=== PATIENT | female | born 2000 | race Caucasian/White ===

== ENCOUNTER 2020-08-19 13:49 | Emergency (ER) | payer BC ==
--- NOTE | 2020-08-19 14:39 | EDM.PDOC ---
ED HPI GENERAL MEDICAL PROBLEM - General Chief Complaint: IT SALES CONSULTANT Problem Stated Complaint: GENITAL BLEEDING Time Seen by Provider: 08/19/20 13:50 Source of Information: Reports: Patient History Limitations: Reports: No Limitations - History of Present Illness INITIAL COMMENTS - FREE TEXT/NARRATIVE: History of present illness: Patient is a 20 year old female who presents to the ED with complaints of vaginal bleeding. Reports her last menstrual period was August 03, 2020 - although she usually has irregular periods, its typically 1-2 weeks late, not early bleeding. She states she has gone through a pad in the last 1 hour. gone through a pad in the last hour. She previously had been on control, but hasn't in the past several months due to not having a PCP. Denies any concern for , but is sexually active. She has history of genital herpes, no current outbreaks. Denies any injury or pelvic trauma. Patient denies any fever, chills, headache, change in vision, syncope or near syncope. Denies any chest pain, back pain, shortness of breath or cough. Denies any nausea, vomiting, diarrhea, constipation or dysuria. Patient has been eating and drinking appropr iately Review of systems: As per history of present illness and below otherwise all systems reviewed and negative. Past medical history: As per history of present illness and as reviewed below otherwise noncontributory. Surgical history: As per history of present illness and as reviewed below otherwise noncontributory. Social history: No reported history of drug or alcohol abuse. Family history: As per history of present illness and as reviewed below otherwise noncontributory. Physical exam: General: Well-developed and well-nourished 4-year-old female. Alert and appropriate for age. Nontoxic-appearing and in no acute distress. Accompanied by mom who is attentive to child's needs and at bedside. HEENT: Atraumatic, normocephalic, pupils reactive, negative for conjunctival pallor or scleral icterus, mucous membranes moist, throat clear, neck supple, nontender, trachea midline. TMs normal bilaterally, no cervical adenopathy or nuchal rigidity. Lungs: Clear to auscultation, breath sounds equal bilaterally, chest nontender. No work of breathing, no accessory muscles use. Heart: S1S2, regular rate and rhythm, no overt murmurs Abdomen: Soft, nondistended, no abdominal/pelvic tenderness. Negative for masses or hepatosplenomegaly. Normal abdominal bowel sounds. No flank tenderness. /Rectal: This was done with consent and a nuclear technician at the bedside. Patient's external exam is within normal limits. She does have mild bleeding from the cervical os, no cervical motion tenderness. No discharge is noted. Patient tolerated well. Samples sent to lab with patient consent. Hematologic: No petechiae or purpra. Mucosa appropriate color and normal nail bed color and refill. Skin: Normal turgor, no overt rash or lesions Extremities: Atraumatic, full range of motion without defects or deficits. Neurovascular unremarkable. Neuro: Awake, alert, and age appropriate. Cranial nerves II through XII unremarkable. Cerebellum unremarkable. Motor and sensory unremarkable throughout. Exam nonfocal. Notes: This patient was seen and evaluated during the 2019 SARS-CoV-2 novel coronavirus pandemic period. Community viral transmission is ongoing at time of this encounter and the emergency department is operating under pandemic response procedures Lab work is unremarkable with the exception of bacterial vaginosis. I have spoken with the patient/caregiver and discussed today's findings, in addition to providing specific details for plan of care. Reassessment at the time of disposition demonstrates that the patient is in no acute distress. The patient is stable for discharge, counseling was provided and we discussed in great detail signs and symptoms that would prompt them to return to the Emergency Department. Medication, follow up and supportive care measures were reviewed and discussed. Voices understanding and is agreeable to plan of care. Denies any further questions or concerns at this time. Diagnostics: CBC, CMP, UA, CT abdomen and pelvis Therapeutics: None Prescription: Flagyl Impression: Irregular menses Bacterial Vaginosis Plan: 1. Your lab work is unremarkable with the exception of a bacterial vaginosis, which will require antibiotics for 7 days. No sexual intercourse during treatment (decreases effectiveness) and avoid alcohol (can cause GI symptoms). 2. You can alternate Tylenol and/or ibuprofen as needed for pain or fever renée gement. 3. We always encourage you to follow up with an OBGYN in the next week for re- evaluation and further care/management. I would encourage you set up with an OBGYN especially if you continue to have irregular menstrual/dysfunctional uterine bleeding. 4. If your symptoms should worsen, new symptoms develop or any of the signs and symptoms we discussed should arise please return to the emergency room or call 911 (if needed). - Related Data Allergies Allergy/AdvReac Type Severity Reaction Status Date / Time No Known Allergies Allergy Verified 08/19/20 14:13 Home Meds: Home Meds metroNIDAZOLE [Flagyl] 500 mg PO BID 7 Days #14 tab 08/19/20 [Rx] valACYclovir HCl [Valtrex] 08/19/20 [History] Past Medical History - Past Health History Medical/Surgical History: Denies Medical/Surgical History ED ROS GENERAL - Review of Systems Review Of Systems: Comprehensive ROS is negative, except as noted in HPI. ED EXAM - Physical Exam Exam: See Below (See dictation) Course - Vital Signs Last Recorded V/S: Last Vital Signs Temp 98.0 F 08/19/20 14:01 Pulse 67 08/19/20 14:01 Resp 18 08/19/20 14:01 BP 117/64 08/19/20 14:01 Pulse Ox 98 08/19/20 14:01 - Orders/Labs/Meds Orders: Active Orders 24 hr Category Date Time Status CHLAMYDIA AND GONORRHEA BY TMA Stat Lab 08/19/20 14:15 Received Labs: Laboratory Tests 08/19/20 08/19/20 08/19/20 Range/Units 14:08 14:08 14:15 WBC (4.0-11.0) K/uL RBC (4.30-5.90) M/uL Hgb (12.0-16.0) g/dL Hct (36.0-46.0) % MCV (80.0-98.0) fL MCH (27.0-32.0) pg MCHC (31.0-37.0) g/dL RDW Std Deviation (28.0-62.0) fl RDW Coeff of Leticia (11.0-15.0) % Plt Count (150-400) K/uL MPV (7.40-12.00) fL Neut % (Auto) (48.0-80.0) % Lymph % (Auto) (16.0-40.0) % [place] % (Auto) (0.0-15.0) % Eos % (Auto) (0.0-7.0) % Baso % (Auto) (0.0-1.5) % Neut # (Auto) (1.4-5.7) K/uL Lymph # (Auto) (0.6-2.4) K/uL [place] # (Auto) (0.0-0.8) K/uL Eos # (Auto) (0.0-0.7) K/uL Baso # (Auto) (0.0-0.1) K/uL Nucleated RBC % /100WBC Nucleated RBCs # K/uL Sodium (136-145) mmol/L Potassium (3.5-5.1) mmol/L Chloride (98-107) mmol/L Carbon Dioxide (21.0-32.0) mmol/L BUN (7.0-18.0) mg/dL Creatinine (0.6-1.0) mg/dL Est Cr Clr Drug Dosing mL/min Estimated GFR (MDRD) ml/min Glucose (74-106) mg/dL Calcium (8.5-10.1) mg/dL Total Bilirubin (0.2-1.0) mg/dL AST (15-37) IU/L ALT (14-63) IU/L Alkaline Phosphatase (46-116) U/L Total Protein (6.4-8.2) g/dL Albumin (3.4-5.0) g/dL Globulin (2.6-4.0) g/dL Albumin/Globulin Ratio (0.9-1.6) Urine Color DARK YELLOW Urine Appearance SLT CLOUDY Urine pH 6.5 (5.0-8.0) Ur Specific [place] 1.020 (1.001-1.035) Urine Protein 30 H (NEGATIVE) mg/dL Urine Glucose (UA) NEGATIVE (NEGATIVE) mg/dL Urine Ketones 15 H (NEGATIVE) mg/dL Urine Occult Blood LARGE H (NEGATIVE) Urine Nitrite NEGATIVE (NEGATIVE) Urine Bilirubin NEGATIVE (NEGATIVE) Urine Urobilinogen 4.0 H (<2.0) EU/dL Ur Leukocyte Esterase NEGATIVE (NEGATIVE) Urine RBC 2-4 (0-2/HPF) Urine WBC 2-5 (0-5/HPF) Ur Epithelial Cells FEW (NONE-FEW) Amorphous Sediment FEW (NEGATIVE) Urine Bacteria FEW (NEGATIVE) Urine Mucus FEW (NONE-MOD) Urine HCG, Qual NEGATIVE (NEGATIVE) Harmony species DNA NEGATIVE (NEGATIVE) Gardnerella DNA Probe POSITIVE H (NEGATIVE) Trichomonas DNA Probe NEGATIVE (NEGATIVE) 08/19/20 08/19/20 Range/Units 15:14 15:14 WBC 6.55 (4.0-11.0) K/uL RBC 4.24 L (4.30-5.90) M/uL Hgb 13.5 (12.0-16.0) g/dL Hct 39.6 (36.0-46.0) % MCV 93.4 (80.0-98.0) fL MCH 31.8 (27.0-32.0) pg MCHC 34.1 (31.0-37.0) g/dL RDW Std Deviation 41.6 (28.0-62.0) fl RDW Coeff of Leticia 12 (11.0-15.0) % Plt Count 292 (150-400) K/uL MPV 11.10 (7.40-12.00) fL Neut % (Auto) 69.5 (48.0-80.0) % Lymph % (Auto) 24.3 (16.0-40.0) % [place] % (Auto) 5.5 (0.0-15.0) % Eos % (Auto) 0.2 (0.0-7.0) % Baso % (Auto) 0.5 (0.0-1.5) % Neut # (Auto) 4.6 (1.4-5.7) K/uL Lymph # (Auto) 1.6 (0.6-2.4) K/uL [place] # (Auto) 0.4 (0.0-0.8) K/uL Eos # (Auto) 0.0 (0.0-0.7) K/uL Baso # (Auto) 0.0 (0.0-0.1) K/uL Nucleated RBC % 0.0 /100WBC Nucleated RBCs # 0 K/uL Sodium 142 (136-145) mmol/L Potassium 4.1 (3.5-5.1) mmol/L Chloride 103 (98-107) mmol/L Carbon Dioxide 27.6 (21.0-32.0) mmol/L BUN 9 (7.0-18.0) mg/dL Creatinine 0.7 (0.6-1.0) mg/dL Est Cr Clr Drug Dosing 104.28 mL/min Estimated GFR (MDRD) > 60.0 ml/min Glucose 93 (74-106) mg/dL Calcium 9.0 (8.5-10.1) mg/dL Total Bilirubin 0.6 (0.2-1.0) mg/dL AST 13 L (15-37) IU/L ALT 19 (14-63) IU/L Alkaline Phosphatase 39 L (46-116) U/L Total Protein 7.4 (6.4-8.2) g/dL Albumin 4.1 (3.4-5.0) g/dL Globulin 3.3 (2.6-4.0) g/dL Albumin/Globulin Ratio 1.2 (0.9-1.6) Urine Color Urine Appearance Urine pH (5.0-8.0) Ur Specific [place] (1.001-1.035) Urine Protein (NEGATIVE) mg/dL Urine Glucose (UA) (NEGATIVE) mg/dL Urine Ketones (NEGATIVE) mg/dL Urine Occult Blood (NEGATIVE) Urine Nitrite (NEGATIVE) Urine Bilirubin (NEGATIVE) Urine Urobilinogen (<2.0) EU/dL Ur Leukocyte Esterase (NEGATIVE) Urine RBC (0-2/HPF) Urine WBC (0-5/HPF) Ur Epithelial Cells (NONE-FEW) Amorphous Sediment (NEGATIVE) Urine Bacteria (NEGATIVE) Urine Mucus (NONE-MOD) Urine HCG, Qual (NEGATIVE) Harmony species DNA (NEGATIVE) Gardnerella DNA Probe (NEGATIVE) Trichomonas DNA Probe (NEGATIVE) Departure - Departure Time of Disposition: 16:11 Disposition: Home, Self-Care 01 Clinical Impression: Bacterial vaginosis, Irregular menses - Discharge Information Prescriptions: metroNIDAZOLE [Flagyl] 500 mg PO BID 7 Days #14 tab Instructions: Bacterial Vaginosis, [id number] Referrals: PCP,None [Primary Care Provider] - Forms: ED Department Discharge Additional Instructions: The following information is given to patients seen in the emergency department who are being discharged to home. This information is to outline your options for follow-up care. We provide all patients seen in our emergency department with a follow-up referral. The need for follow-up, as well as the timing and circumstances, are variable depending upon the specifics of your emergency department visit. If you don't have a primary care physician on staff, we will provide you with a referral. We always advise you to contact your personal physician following an emergency department visit to inform them of the circumstance of the visit and for follow-up with them and/or the need for any referrals to a consulting specialist. The emergency department will also refer you to a specialist when appropriate. This referral assures that you have the opportunity for follow-up care with a specialist. All of these measure are taken in an effort to provide you with optimal care, which includes your follow-up. Under all circumstances we always encourage you to contact your private physician who remains a resource for coordinating your care. When calling for follow-up care, please make the office aware that this follow-up is from your recent emergency room visit. If for any reason you are refused follow-up, please contact the [facility] Emergency Department at and asked to speak to the emergency department charge nurse. [facility] [address] [place], [place] [id number] [place] [address] Thank you for choosing the [facility] emergency department in [place] for your medical needs today. It was a pleasure caring for you. Today you were seen in the emergency department for vaginal bleeding. 1. Your lab work is unremarkable with the exception of a bacterial vaginosis, which will require antibiotics for 7 days. No sexual intercourse during treatment (decreases effectiveness) and avoid alcohol (can cause GI symptoms). 2. You can alternate Tylenol and/or ibuprofen as needed for pain or fever management. 3. We always encourage you to follow up with an OBGYN in the next week for re-evaluation and further care/management. I would encourage you set up with an OBGYN especially if you continue to have irregular menstrual/dysfunctional uterine bleeding. 4. If your symptoms should worsen, new symptoms develop or any of the signs and symptoms we discussed should arise please return to the emergency room or call 911 (if needed). Sepsis Event Note (ED) - Evaluation Sepsis Screening Result: No Definite Risk - Focused Exam Vital Signs: Vital Signs Temp Pulse Resp BP Pulse Ox 08/19/20 14:01 98.0 F 67 18 117/64 98 - My Orders Last 24 Hours: My Active Orders 08/19/20 14:15 CHLAMYDIA AND GONORRHEA BY TMA Stat - Assessment/Plan Last 24 Hours: My Active Orders 08/19/20 14:15 CHLAMYDIA AND GONORRHEA BY TMA Stat
[2020-08-19 16:05] LABS: BLOOD UREA NITROGEN,BUN 9 mg/dL (7.0-18.0); CARBON DIOXIDE,CO2 27.6 mmol/L (21.0-32.0); CHLORIDE,CL 103 mmol/L (98-107); GLUCOSE RANDOM 93 mg/dL (74-106); POTASSIUM,K 4.1 mmol/L (3.5-5.1); SODIUM,NA 142 mmol/L (136-145)
[2020-08-23 12:07] LABS: C.TRACHOMATIS BY TMA Negative (Negative); N.GONORRHOEAE BY TMA Negative (Negative)
== END 2020-08-19 16:25 | disposition home or self-care (01) ==
LOC: MW.ED 13:49
DX: N92.6 Irregular menstruation, unspecified (principal); N76.0 Acute vaginitis; B96.89 Other specified bacterial agents as the cause of diseases classified elsewhere
CPT/HCPCS: 36415; 80053; 81001; 81025; 85025; 87480; 87491; 87510; 87591; 87660; 99283; 99284

== ENCOUNTER 2020-10-23 12:06 | Emergency (ER) | payer BC ==
--- NOTE | 2020-10-23 12:55 | EDM.PDOC ---
ED HPI GENERAL MEDICAL PROBLEM - General Chief Complaint: ENT Problem Stated Complaint: sore throat Time Seen by Provider: 10/23/20 12:47 Source of Information: Reports: Patient History Limitations: Reports: No Limitations - History of Present Illness INITIAL COMMENTS - FREE TEXT/NARRATIVE: Patient is a 20-year-old female who presents today for throat pain. Patient for the past few days she has had a sore and scratchy throat. Patient said her snapshot swallowing pain. Patient she is able to breathe clear well. Patient denies any rashes or any other symptoms. - Related Data Allergies Allergy/AdvReac Type Severity Reaction Status Date / Time No Known Allergies Allergy Verified 08/19/20 14:13 Home Meds: Home Meds metroNIDAZOLE [Flagyl] 500 mg PO BID 7 Days #14 tab 08/19/20 [Rx] valACYclovir HCl [Valtrex] 08/19/20 [History] Past Medical History - Past Health History Medical/Surgical History: Denies Medical/Surgical History - Infectious Disease History Infectious Disease History: Reports: Herpes Social & Family History - Family History Family Medical History: No Pertinent Family History - Caffeine Use Caffeine Use: Reports: None ED ROS ENT - Review of Systems Review Of Systems: See Below Constitutional: Reports: No Symptoms HEENT: Reports: Throat Pain Respiratory: Reports: No Symptoms Endocrine: Reports: No Symptoms GI/Abdominal: Reports: No Symptoms : Reports: No Symptoms Musculoskeletal: Reports: No Symptoms Skin: Reports: No Symptoms Neurological: Reports: No Symptoms Psychiatric: Reports: No Symptoms Hematologic/Lymphatic: Reports: No Symptoms Immunologic: Reports: No Symptoms ED EXAM, ENT - Physical Exam Exam: See Below Exam Limited By: No Limitations General Appearance: Alert, WD/WN Mouth/Throat: Normal Inspection, Normal Gums, Throat Pain. No: Throat Swelling, Tonsillar Exudates Course - Orders/Labs/Meds Labs: Laboratory Tests 10/23/20 10/23/20 Range/Units 13:14 13:25 Urine HCG, Qual NEGATIVE (NEGATIVE) Group A Strep (PCR) NOT DETECTED (NOT DETECT) Meds: Medications Discontinued Medications Generic Name Dose Route Start Last Admin Trade Name Freq PRN Reason Stop Dose Admin Dexamethasone 10 mg 10/23/20 13:41 Dexamethasone 10 Mg/Ml Sdv IM 10/23/20 13:42 ONETIME ONE Ketorolac Tromethamine 60 mg 10/23/20 13:41 Ketorolac 60 Mg/2 Ml Sdv IM 10/23/20 13:42 ONETIME ONE - Re-Assessments/Exams Free Text/Narrative Re-Assessment/Exam: 10/23/20 13:59 Strep test is negative. Will be discharged home with pain control symptomatic treatment. Departure - Departure Time of Disposition: 13:59 Disposition: Home, Self-Care 01 Condition: Good Clinical Impression: Viral pharyngitis - Discharge Information *PRESCRIPTION DRUG MONITORING PROGRAM REVIEWED*: Not Applicable *COPY OF PRESCRIPTION DRUG MONITORING REPORT IN PATIENT KAYLA: Not Applicable Instructions: Pharyngitis, [id number] Referrals: PCP,None [Primary Care Provider] - Forms: ED Department Discharge Additional Instructions: The following information is given to patients seen in the emergency department who are being discharged to home. This information is to outline your options for follow-up care. We provide all patients seen in our emergency department with a follow-up referral. The need for follow-up, as well as the timing and circumstances, are variable depending upon the specifics of your emergency department visit. If you don't have a primary care physician on staff, we will provide you with a referral. We always advise you to contact your personal physician following an emergency department visit to inform them of the circumstance of the visit and for follow-up with them and/or the need for any referrals to a consulting specialist. The emergency department will also refer you to a specialist when appropriate. This referral assures that you have the opportunity for follow-up care with a specialist. All of these measure are taken in an effort to provide you with optimal care, which includes your follow-up. Under all circumstances we always encourage you to contact your private physician who remains a resource for coordinating your care. When calling for follow-up care, please make the office aware that this follow-up is from your recent emergency room visit. If for any reason you are refused follow-up, please contact the [facility] Emergency Department at and asked to speak to the emergency department charge nurse. Please follow up with your primary care physician. If you do not have a primary care physician, see below: [facility] [address] [place] [id number] [place] [address] Please follow-up with your primary care physician. We did a rapid strep that was negative. We will also send a culture. Please continue to take [id number] medication as needed for your throat pain. We gave you some Decadron with steroids about the swelling and pain today. If you have any other concerns please return to the ED. - Assessment/Plan Plan: Patient is a 20-year-old female presents today for throat pain. Patient does not have any tonsillar exudates. Will obtain strep throat and reassess.
[2020-10-23] MEDS ORDERED: Dexamethasone 10 MG/ML SDV IM ONE (13:41)
[2020-10-23] MEDS ORDERED: Ketorolac 60 MG/2 ML SDV IM ONE (13:41)
== END 2020-10-23 14:14 | disposition home or self-care (01) ==
LOC: MW.ED 12:06
DX: J02.9 Acute pharyngitis, unspecified (principal)
CPT/HCPCS: 81025; 87651; 96372; 99283; J1100; 99282

== ENCOUNTER 2020-12-18 16:54 | Emergency (ER) | payer OTHER, BC ==
[2020-12-18] MEDS ORDERED: Ketorolac 60 MG/2 ML SDV IM ONE (17:39)
[2020-12-18] MEDS ORDERED: Ketorolac 30 MG/ML SDV IVPUSH ONE (17:39)
[2020-12-18 17:54] LABS: BLOOD UREA NITROGEN,BUN 16 mg/dL (7.0-18.0); CARBON DIOXIDE,CO2 23.9 mmol/L (21.0-32.0); CHLORIDE,CL 103 mmol/L (98-107); GLUCOSE RANDOM 148 mg/dL (74-106); POTASSIUM,K 4.1 mmol/L (3.5-5.1); SODIUM,NA 139 mmol/L (136-145)
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
[2020-12-18] MEDS ORDERED: Iopamidol 755 MG/ML 500 ML Multipack Bottle IVPUSH ONE (18:51)
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
== END 2020-12-18 19:37 | disposition home or self-care (01) ==
LOC: MW.ED 16:54
DX: S40.012A Contusion of left shoulder, initial encounter (principal); S39.91XA Unspecified injury of abdomen, initial encounter; V59.9XXA Occupant (driver) (passenger) of pick-up truck or van injured in unspecified traffic accident, initial encounter
CPT/HCPCS: 36415; 71045; 74177; 80053; 84703; 85025; 96374; 99284; J1885; Q9967; 72131-26; 99283

== ENCOUNTER 2021-02-23 23:41 | Emergency (ER) | payer OTHER, BC ==
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
--- NOTE | 2021-02-24 00:37 | CR ---
INDICATION: Hydrogen sulfide exposure TECHNIQUE: Chest radiograph 1 view COMPARISON: 12/18/2020 FINDINGS: Mediastinum: The mediastinum is normal in appearance. The heart silhouette is normal in size and morphology. Lung: Both lungs are unremarkable in appearance. No sign of pleural effusion seen. No pneumothorax is identified. Bone and Soft tissue: Unremarkable for age. IMPRESSION: 1. No acute cardiopulmonary disease is seen. Dictated by: Lupillo Brown MD @ 02/24/2021 00:35:55 (Electronically Signed)
[2021-02-24 00:49] LABS: BLOOD UREA NITROGEN,BUN 11 mg/dL (7.0-18.0); CARBON DIOXIDE,CO2 25.8 mmol/L (21.0-32.0); CHLORIDE,CL 102 mmol/L (98-107); GLUCOSE RANDOM 87 mg/dL (74-106); POTASSIUM,K 4.2 mmol/L (3.5-5.1); SODIUM,NA 137 mmol/L (136-145)
== END 2021-02-24 02:30 | disposition home or self-care (01) ==
LOC: MW.ED 23:41
DX: T59.6X1A Toxic effect of hydrogen sulfide, accidental (unintentional), initial encounter (principal)
CPT/HCPCS: 36415; 71045; 71045-26; 80053; 82803; 83605; 84703; 85025; 99284-25

== ENCOUNTER 2021-06-28 04:39 | Emergency (ER) | payer BC, OTHER ==
[2021-06-28] MEDS ORDERED: Ondansetron 4 MG/2 ML SDV IVPUSH STA (04:51)
[2021-06-28] MEDS ORDERED: Ketorolac 30 MG/ML SDV IVPUSH STA (04:51)
[2021-06-28] MEDS ORDERED: Sodium Chloride 0.9% 1,000 ML IV ONE (04:51)
[2021-06-28] MEDS ORDERED: Ketorolac 30 MG/ML SDV ONE (04:58)
[2021-06-28] MEDS ORDERED: Ondansetron 4 MG/2 ML SDV ONE (04:58)
[2021-06-28] MEDS ORDERED: Iopamidol 755 MG/ML 500 ML Multipack Bottle IVPUSH STA (06:09)
[2021-06-28 06:35] LABS: BLOOD UREA NITROGEN,BUN 9 mg/dL (7.0-18.0); CARBON DIOXIDE,CO2 26.7 mmol/L (21.0-32.0); CHLORIDE,CL 100 mmol/L (98-107); GLUCOSE RANDOM 104 mg/dL (74-106); LIPASE 91 U/L (73-393); POTASSIUM,K 3.7 mmol/L (3.5-5.1); SODIUM,NA 137 mmol/L (136-145)
--- NOTE | 2021-06-28 06:48 | EDM.PDOC ---
ED HPI GENERAL MEDICAL PROBLEM - General Chief Complaint: Abdominal Pain Stated Complaint: ABDOMINAL PAIN Time Seen by Provider: 06/28/21 06:42 Source of Information: Reports: Patient History Limitations: Reports: No Limitations - History of Present Illness INITIAL COMMENTS - FREE TEXT/NARRATIVE: 21-year-old female with history of fibroid presents with abdominal pain. Pain started 3 days ago but got worse 2 hours prior to arrival. Pain is localized in the right upper quadrant and radiates into the right upper flank, described as sharp, rated 8/10, constant, no alleviating or exacerbating factors. She took Tylenol with no relief. She admits to chills and nausea and decreased appetite. She denies fever, vomiting, rectal bleeding, hematuria. Diarrhea, chest pain. Her last p.o. intake with 9:30 PM. ROS: A 10-point review of systems, other than pertinent positives and negatives as stated per HPI, is otherwise negative Past medical history: No additional pertinent history Past Surgical history: No additional pertinent history Social history: No additional pertinent history Family history: No additional pertinent history PHYSICAL EXAM General: AOx4, GCS = 15, moderate distress HEENT: dry mucous membrane Neck: supple, no meningismus, no Kernig or Brudzinski Cardiac: S1S2 RRR Respiratory: CTAB, no crackles or rales, no wheezing Abdomen: Soft, RUQ tender to palpation, right CVA tenderness, mild RLQ tenderness, No rebound or guarding, nondistended, no pulsatile mass. Back: nontender Musculoskeletal: NVI distally, no deformity Neuro: No focal deficits Right Lower Abdomen Pain Score (Numeric/FACES): 8 - Related Data Allergies Allergy/AdvReac Type Severity Reaction Status Date / Time No Known Allergies Allergy Verified 06/28/21 06:06 Home Meds: Home Meds . [No Known Home Meds] 02/23/21 [History] Past Medical History - Past Health History Medical/Surgical History: Denies Medical/Surgical History HEENT History: Reports: None Cardiovascular History: Reports: None Respiratory History: Reports: None Gastrointestinal History: Reports: None Genitourinary History: Reports: None ARCHITECTURAL MODELER History: Reports: Other (See Below) Other ARCHITECTURAL MODELER History: right breast fibromanoma Musculoskeletal History: Reports: None Neurological History: Reports: None Psychiatric History: Reports: None Endocrine/Metabolic History: Reports: None Hematologic History: Reports: None Immunologic History: Reports: None Oncologic (Cancer) History: Reports: None Dermatologic History: Reports: None - Infectious Disease History Infectious Disease History: Reports: Herpes - Past Surgical History Head Surgeries/Procedures: Reports: None Social & Family History - Family History Family Medical History: No Pertinent Family History - Caffeine Use Caffeine Use: Reports: None ED ROS GENERAL - Review of Systems Review Of Systems: See Below (see dictation) ED EXAM, GENERAL - Physical Exam Exam: See Below (see dictation) Course - Vital Signs Last Recorded V/S: Last Vital Signs Temp 98.2 F 06/28/21 04:43 Pulse 99 06/28/21 06:23 Resp 15 06/28/21 06:23 BP 111/64 06/28/21 06:23 Pulse Ox 99 06/28/21 06:23 - Orders/Labs/Meds Orders: Active Orders 24 hr Category Date Time Status Abdomen Ltd [US] Stat Exams 06/28/21 05:20 Taken Abdomen Pelvis w Cont [CT] Stat Exams 06/28/21 05:40 Taken CULTURE URINE [MREF] Stat Lab 06/28/21 04:55 Received Labs: Laboratory Tests 06/28/21 06/28/21 06/28/21 Range/Units 04:55 04:55 04:55 WBC 8.56 (4.0-11.0) K/uL RBC 4.37 (4.30-5.90) M/uL Hgb 14.0 (12.0-16.0) g/dL Hct 40.6 (36.0-46.0) % MCV 92.9 (80.0-98.0) fL MCH 32.0 (27.0-32.0) pg MCHC 34.5 (31.0-37.0) g/dL RDW Std Deviation 41.9 (28.0-62.0) fl RDW Coeff of Leticia 12 (11.0-15.0) % Plt Count 279 (150-400) K/uL MPV 11.30 (7.40-12.00) fL Neut % (Auto) 55.6 (48.0-80.0) % Lymph % (Auto) 34.8 (16.0-40.0) % Lyman % (Auto) 7.6 (0.0-15.0) % Eos % (Auto) 1.4 (0.0-7.0) % Baso % (Auto) 0.6 (0.0-1.5) % Neut # (Auto) 4.8 (1.4-5.7) K/uL Lymph # (Auto) 3.0 H (0.6-2.4) K/uL Lyman # (Auto) 0.7 (0.0-0.8) K/uL Eos # (Auto) 0.1 (0.0-0.7) K/uL Baso # (Auto) 0.1 (0.0-0.1) K/uL Nucleated RBC % 0.0 /100WBC Nucleated RBCs # 0 K/uL Sodium 137 (136-145) mmol/L Potassium 3.7 (3.5-5.1) mmol/L Chloride 100 (98-107) mmol/L Carbon Dioxide 26.7 (21.0-32.0) mmol/L BUN 9 (7.0-18.0) mg/dL Creatinine 0.8 (0.6-1.0) mg/dL Est Cr Clr Drug Dosing TNP Estimated GFR (MDRD) > 60.0 ml/min Glucose 104 (74-106) mg/dL Calcium 9.3 (8.5-10.1) mg/dL Total Bilirubin 0.5 (0.2-1.0) mg/dL AST 12 L (15-37) IU/L ALT 16 (14-63) IU/L Alkaline Phosphatase 46 (46-116) U/L Total Protein 7.7 (6.4-8.2) g/dL Albumin 4.1 (3.4-5.0) g/dL Globulin 3.6 (2.6-4.0) g/dL Albumin/Globulin Ratio 1.1 (0.9-1.6) Lipase 91 (73-393) U/L HCG, Qual (NEG) Urine Color YELLOW Urine Appearance CLEAR Urine pH 6.5 (5.0-8.0) Ur Specific [place] <= 1.005 (1.001-1.035) Urine Protein NEGATIVE (NEGATIVE) mg/dL Urine Glucose (UA) NEGATIVE (NEGATIVE) mg/dL Urine Ketones NEGATIVE (NEGATIVE) mg/dL Urine Occult Blood MODERATE H (NEGATIVE) Urine Nitrite NEGATIVE (NEGATIVE) Urine Bilirubin NEGATIVE (NEGATIVE) Urine Urobilinogen 0.2 (<2.0) EU/dL Ur Leukocyte Esterase SMALL H (NEGATIVE) Urine RBC 2-3 (0-2/HPF) Urine WBC 1-3 (0-5/HPF) Ur Epithelial Cells FEW (NONE-FEW) Urine Bacteria FEW (NEGATIVE) 06/28/21 Range/Units 04:55 WBC (4.0-11.0) K/uL RBC (4.30-5.90) M/uL Hgb (12.0-16.0) g/dL Hct (36.0-46.0) % MCV (80.0-98.0) fL MCH (27.0-32.0) pg MCHC (31.0-37.0) g/dL RDW Std Deviation (28.0-62.0) fl RDW Coeff of Leticia (11.0-15.0) % Plt Count (150-400) K/uL MPV (7.40-12.00) fL Neut % (Auto) (48.0-80.0) % Lymph % (Auto) (16.0-40.0) % Lyman % (Auto) (0.0-15.0) % Eos % (Auto) (0.0-7.0) % Baso % (Auto) (0.0-1.5) % Neut # (Auto) (1.4-5.7) K/uL Lymph # (Auto) (0.6-2.4) K/uL Lyman # (Auto) (0.0-0.8) K/uL Eos # (Auto) (0.0-0.7) K/uL Baso # (Auto) (0.0-0.1) K/uL Nucleated RBC % /100WBC Nucleated RBCs # K/uL Sodium (136-145) mmol/L Potassium (3.5-5.1) mmol/L Chloride (98-107) mmol/L Carbon Dioxide (21.0-32.0) mmol/L BUN (7.0-18.0) mg/dL Creatinine (0.6-1.0) mg/dL Est Cr Clr Drug Dosing Estimated GFR (MDRD) ml/min Glucose (74-106) mg/dL Calcium (8.5-10.1) mg/dL Total Bilirubin (0.2-1.0) mg/dL AST (15-37) IU/L ALT (14-63) IU/L Alkaline Phosphatase (46-116) U/L Total Protein (6.4-8.2) g/dL Albumin (3.4-5.0) g/dL Globulin (2.6-4.0) g/dL Albumin/Globulin Ratio (0.9-1.6) Lipase (73-393) U/L HCG, Qual NEGATIVE (NEG) Urine Color Urine Appearance Urine pH (5.0-8.0) Ur Specific [place] (1.001-1.035) Urine Protein (NEGATIVE) mg/dL Urine Glucose (UA) (NEGATIVE) mg/dL Urine Ketones (NEGATIVE) mg/dL Urine Occult Blood (NEGATIVE) Urine Nitrite (NEGATIVE) Urine Bilirubin (NEGATIVE) Urine Urobilinogen (<2.0) EU/dL Ur Leukocyte Esterase (NEGATIVE) Urine RBC (0-2/HPF) Urine WBC (0-5/HPF) Ur Epithelial Cells (NONE-FEW) Urine Bacteria (NEGATIVE) Meds: Medications Discontinued Medications Generic Name Dose Route Start Last Admin Trade Name Freq PRN Reason Stop Dose Admin Sodium Chloride 1,000 mls @ 999 mls/hr 06/28/21 04:51 06/28/21 05:01 Normal Saline IV 06/28/21 05:51 999 mls/hr .Bolus ONE Administration Iopamidol 100 ml 06/28/21 06:09 06/28/21 06:11 Iopamidol 755 Mg/Ml 500 Ml Multipack Bottle IVPUSH 06/28/21 06:10 100 ml ONETIME STA Administration Ketorolac Tromethamine 30 mg 06/28/21 04:51 06/28/21 05:01 Ketorolac 30 Mg/Ml Sdv IVPUSH 06/28/21 04:52 30 mg ONETIME STA Administration Ondansetron HCl 4 mg 06/28/21 04:51 06/28/21 06:19 Ondansetron 4 Mg/2 Ml Sdv IVPUSH 06/28/21 04:52 4 mg ONETIME STA Administration - Re-Assessments/Exams Free Text/Narrative Re-Assessment/Exam: 06/28/21 06:59 I re-examined the patient, her pain is much improved after IVF, toradol, zofran. Patient will be signed out to Dr. Tuttle for ultimate disposition. Departure - Departure Time of Disposition: 06:57 Disposition: Still A Patient 30 Condition: Good Clinical Impression: Abdominal pain - Discharge Information *PRESCRIPTION DRUG MONITORING PROGRAM REVIEWED*: Not Applicable *COPY OF PRESCRIPTION DRUG MONITORING REPORT IN PATIENT KAYLA: Not Applicable Referrals: PCP,None [Primary Care Provider] - Forms: ED Department Discharge Sepsis Event Note (ED) - Evaluation Sepsis Screening Result: No Definite Risk - Focused Exam Vital Signs: Vital Signs Temp Pulse Resp BP Pulse Ox 06/28/21 06:23 99 15 111/64 99 06/28/21 04:43 98.2 F 73 16 135/84 99 - My Orders Last 24 Hours: My Active Orders 06/28/21 04:55 CULTURE URINE [MREF] Stat 06/28/21 05:20 Abdomen Ltd [US] Stat 06/28/21 05:40 Abdomen Pelvis w Cont [CT] Stat - Assessment/Plan Last 24 Hours: My Active Orders 06/28/21 04:55 CULTURE URINE [MREF] Stat 06/28/21 05:20 Abdomen Ltd [US] Stat 06/28/21 05:40 Abdomen Pelvis w Cont [CT] Stat
[2021-06-28] MEDS ORDERED: Morphine 4 MG/ML VIAL IVPUSH ONE (08:37)
--- NOTE | 2021-06-28 09:52 | PCM.SN.2 ---
- Free Text/Narrative Note: Patient signed out to me by Dr. Johansen pending imaging results. CT scan shows no evidence of acute pathology. The appendix looks okay the gallbladder looks fine. There are no kidney or normalities. Likewise the ultrasound shows no acute pathology. Patient's laboratory work-up is likewise reassuring. There is some degree of blood in the urine but the patient is just getting off her.. At one point the patient was complaining of some abdominal pain and was requesting pain medication so this was given but when I examined her abdomen was soft and relatively benign. Patient was reasked and started the back pain has been going on for about 3 days and abdominal pain last night. Patient denies any bowel or bladder dysfunction or leg weakness. The patient's exam is benign and at this time with negative imaging studies and laboratory testing patient can go home with strict return precautions discussed and PCP follow-up. Diagnosis: 1. Back pain 2. Abdominal pain. Patient discharged in good condition. Return for change or worsening condition or lack of improvement. Follow-up with primary care doctor in the next couple of days for reevaluation
--- NOTE | 2021-06-28 12:53 | CT ---
Patient: ERIKA BAIRD Facility: [facility] Site : 2000 Study: CT-Abdomen/Pelvis W CONT-06/28/2021 5:59:53 AM Ordering Physician: LYNNETTE SEN MD Final Report: Indication: Abdominal Pain Technique: Volumetric multidetector CT images of the abdomen and pelvis were obtained after the administration of intravenous contrast. 100 cc Isovue 370 low osmolar intravenous contrast Comparison: None available. Findings: The lung bases are clear. The liver is normal in attenuation without intrahepatic biliary ductal dilatation. The portal vein is patent. The gallbladder is unremarkable without evidence of radiopaque calculus. There is no significant common biliary ductal dilatation or abrupt cut off. The spleen is normal in enhancement and size. The stomach and duodenum are grossly unremarkable. The pancreas is normal in enhancement without significant atrophy. The adrenal glands are unremarkable. The kidneys demonstrate preserved corticomedullary differentiation without evidence of obstructive uropathy. There is moderate diffuse stool seen throughout the colon. There are fluid containing loops of distal small bowel which may represent mild enteritis changes. The appendix is unremarkable. There is no significant mesenteric, retroperitoneal, or pelvic sidewall lymph nodes. The aorta is nonaneurysmal. There is no significant atherosclerotic disease appreciated. The solid pelvic viscera are grossly unremarkable. There is no free fluid or free air. The anterior abdominal wall is intact without significant hernias. The lumbar vertebral body heights are grossly maintained in satisfactory alignment without evidence of displaced fracture, lytic or blastic lesion. Impression: Moderate stool seen throughout the colon. Mild nonspecific fluid distention of the central small bowel which may represent minimal enteritis changes. Normal appendix. Otherwise, no definite acute intra-abdominal abnormalities are appreciated. Please note that all CT scans at this facility use dose modulation, iterative reconstruction, and/or weight-based dosing when appropriate to reduce radiation dose to as low as reasonably achievable. Dictated by Rick Ledesma MD @ 06/28/2021 6:18:44 AM Signed by: Rick Ledesma MD @06/28/2021 6:18:44 AM (Electronic Signature) [facility]
--- NOTE | 2021-06-28 12:54 | US ---
Patient: ERIKA BAIRD Facility: [facility] [place] Site Site : 2000 Study: US-Abdomen -06/28/2021 5:52:37 AM Ordering Physician: FRANCY Final Report: INDICATION: Periumbilical abdominal pain TECHNIQUE: Ultrasound abdomen right upper quadrant. Sonographic images were obtained using botello-scale and color Doppler. COMPARISON: None FINDINGS: Liver: Mild fatty infiltration of the liver is noted. Gallbladder: No gallstones or sludge seen in the lumen. The gallbladder wall is normal in appearance. No pericholecystic fluid is present. No sonographic [place] sign is present. Common bile duct: 5 mm. No intrahepatic biliary ductal dilatation seen. Pancreas: The visualized portions of the pancreatic head and body are normal in appearance. Right Kidney: 10 cm. The right kidney is normal in appearance and echotexture. No hydronephrosis or ureterectasis is seen. Vascular: Proximal abdominal aorta and IVC are normal in caliber. The visualized portal vein is patent with normal anterograde flow. IMPRESSION: 1. Mild fatty infiltration of the liver is noted. Dictated by Lupillo Brown MD @ 06/28/2021 5:54:20 AM Dictated by: Lupillo Brown MD @ 06/28/2021 05:54:56 Signed by: Lupillo Brown MD @06/28/2021 5:54:56 AM (Electronic Signature) [facility]
== END 2021-06-28 10:16 | disposition home or self-care (01) ==
LOC: MW.ED 04:39
DX: R10.11 Right upper quadrant pain (principal)
CPT/HCPCS: 36415; 74177; 76705; 80053; 81001; 83690; 84703; 85025; 87086; 96374; 96375; 99284; J1885; J2270; J2405; J7030; Q9967

== ENCOUNTER 2021-08-17 17:59 | Emergency (ER) | payer BC | END 2021-08-17 19:44 | LOC: MW.ED 17:59 | DX: Z53.21 Procedure and treatment not carried out due to patient leaving prior to being seen by health care provider (principal) ==

== ENCOUNTER 2022-03-13 20:13 | Emergency (ER) | payer BC ==
[2022-03-13] MEDS ORDERED: Sodium Chloride 0.9% 2.5 ML Syringe FLUSH PRN (20:16)
[2022-03-13] MEDS ORDERED: Sodium Chloride 0.9% 10 ML Syringe FLUSH PRN (20:16)
[2022-03-13] MEDS ORDERED: Dextrose 5%-Lactated Ringers 1,000 ML IV STA (21:15)
[2022-03-13] MEDS ORDERED: Ondansetron 4 MG/2 ML SDV IVPUSH ONE ×2 (21:15→22:23)
[2022-03-13] MEDS ORDERED: Iopamidol 755 MG/ML 500 ML Multipack Bottle IVPUSH ONE (22:00)
[2022-03-13] MEDS ORDERED: Morphine 4 MG/ML VIAL IVPUSH ONE (22:23)
[2022-03-13 22:29] LABS: CARBON DIOXIDE,CO2 22.2 mmol/L (21.0-32.0); POTASSIUM,K 3.5 mmol/L (3.5-5.1)
== END 2022-03-13 23:10 | disposition home or self-care (01) ==
LOC: MW.ED 20:13
DX: U07.1 COVID-19 (principal); R10.11 Right upper quadrant pain
CPT/HCPCS: 36415; 74177; 80053; 81001; 81025; 85025; 87635; 96361; 96374; 99284; J2405; J3490; J7121; Q9967; U0002

== ENCOUNTER 2022-09-04 19:39 | Emergency (ER) | payer OTHER ==
[2022-09-04] MEDS ORDERED: Lidocaine 1% PF 2 ML SDV INJECT ONE (19:44)
[2022-09-04] MEDS ORDERED: Diphtheria,Pertussis(Acell),Tetanus Vaccine 0.5 ML Syringe IM ONE (19:44)
[2022-09-04] MEDS ORDERED: Octyl 2-Cyanoacrylate 1 g/1 mL 1 APPLIC PEN TOP ONE (19:55)
== END 2022-09-04 20:24 | disposition home or self-care (01) ==
LOC: MW.ED 19:39
DX: S61.411A Laceration without foreign body of right hand, initial encounter (principal); Z23 Encounter for immunization; W25.XXXA Contact with sharp glass, initial encounter
CPT/HCPCS: 12001; 90471; 99282; A9270

== ENCOUNTER 2022-10-06 01:17 | Emergency (ER) | payer OTHER | END 2022-10-06 01:28 | LOC: MW.ED 01:17 | DX: Z53.21 Procedure and treatment not carried out due to patient leaving prior to being seen by health care provider (principal) ==

== ENCOUNTER 2023-04-17 21:23 | Emergency (ER) | payer OTHER | END 2023-04-17 22:22 | disposition left against medical advice (07) | LOC: MW.ED 21:23 | DX: Z53.21 Procedure and treatment not carried out due to patient leaving prior to being seen by health care provider (principal) ==

== ENCOUNTER 2023-07-22 14:56 | Emergency (ER) | payer BC ==
[2023-07-22] MEDS ORDERED: Ondansetron 4 MG/2 ML SDV IVPUSH ONE (15:08)
[2023-07-22] MEDS ORDERED: Atropine 1 MG/ML SDV IVPUSH ONE (15:08)
[2023-07-22] MEDS ORDERED: Sodium Chloride 0.9% 1,000 ML IV ONE (15:08)
[2023-07-22] MEDS ORDERED: Ketorolac 30 MG/ML SDV IVPUSH ONE (15:08)
[2023-07-22] MEDS ORDERED: LORazepam 2 MG/ML SDV IVPUSH ONE (15:18)
[2023-07-22 16:23] LABS: BASOPHILS ABSOLUTE AUTO 0.06 K/uL (0.00-0.20); BASOPHILS PERCENT AUTO 0.9 % (0.0-1.0); EOSINOPHILS ABSOLUTE AUTO 0.01 K/uL (0.00-0.45); EOSINOPHILS PERCENT AUTO 0.1 % (0.0-6.0); HEMATOCRIT 40.2 % (37.0-47.0); HEMOGLOBIN 13.7 g/dL (12.0-16.0); IMMATURE GRAN ABSOLUTE AUTO 0.01 K/uL (0.00-0.05); IMMATURE GRAN PERCENT AUTO 0.1 % (0.0-0.4); LYMPHOCYTES PERCENT AUTO 23.4 % (24.0-44.0); MEAN CORPUSCULAR HEMOGLOBIN 32.4 pg (28.0-32.0); MEAN CORPUSCULAR HGB CONC 34.1 g/dL (32.0-36.0); MEAN PLATELET VOLUME 10.4 fL (9.4-12.3); MONOCYTES ABSOLUTE AUTO 0.41 K/uL (0.00-0.80); NEUTROPHILS ABSOLUTE AUTO 4.76 K/uL (1.80-7.70); NEUTROPHILS PERCENT AUTO 69.5 % (41.0-71.0); PLATELET COUNT,PLT 260 K/uL (150-400); RED BLOOD CELL COUNT 4.23 M/uL (4.10-5.30); WHITE BLOOD CELL COUNT,WBC 6.85 K/uL (3.9-11.3)
[2023-07-22] MEDS ORDERED: Albuterol/Ipratropium 3.0-0.5 MG/3 ML Neb Soln NEB ONE (16:49)
[2023-07-22 16:52] LABS: A/G RATIO 1.2 (0.9-1.6); ALBUMIN 3.7 g/dL (3.4-5.0); BILIRUBIN TOTAL 0.6 mg/dL (0.2-1.0); CALCIUM 8.9 mg/dL (8.5-10.1); CARBON DIOXIDE,CO2 25.7 mmol/L (21.0-32.0); CREATININE 0.9 mg/dL (0.6-1.0); EST CRCL DRUG DOSING (CG) 79.04 mL/min; POTASSIUM,K 3.3 mmol/L (3.5-5.1); PROTEIN TOTAL,TP 6.8 g/dL (6.4-8.2)
[2023-07-22 16:53] LABS: CORONAVIRUS COVID-19 NAA NEGATIVE (NEGATIVE); INFLUENZA A NAA NEGATIVE (NEGATIVE); INFLUENZA B NAA NEGATIVE (NEGATIVE); RESPIRATORY SYNCYTIAL VIR NAA NEGATIVE (NEGATIVE)
== END 2023-07-22 18:27 | disposition home or self-care (01) ==
LOC: MW.ED 14:56
DX: R07.81 Pleurodynia (principal); Z20.822 Contact with and (suspected) exposure to COVID-19
CPT/HCPCS: 0241U; 36415; 71045; 80053; 84484; 85025; 85379; 93005; 96361; 96374; 96375; 99285; J1885; J2060; J2405; J7030; J7620-GY

== ENCOUNTER 2023-12-06 11:17 | Emergency (ER) | payer BC ==
[2023-12-06 12:02] LABS: BASOPHILS ABSOLUTE AUTO 0.04 K/uL (0.00-0.20); BASOPHILS PERCENT AUTO 0.6 % (0.0-1.0); EOSINOPHILS ABSOLUTE AUTO 0.04 K/uL (0.00-0.45); EOSINOPHILS PERCENT AUTO 0.6 % (0.0-6.0); HEMATOCRIT 37.7 % (37.0-47.0); HEMOGLOBIN 12.8 g/dL (12.0-16.0); IMMATURE GRAN ABSOLUTE AUTO 0.01 K/uL (0.00-0.05); IMMATURE GRAN PERCENT AUTO 0.2 % (0.0-0.4); LYMPHOCYTES ABSOLUTE AUTO 2.06 K/uL (1.00-4.80); LYMPHOCYTES PERCENT AUTO 31.1 % (24.0-44.0); MEAN CORPUSCULAR HEMOGLOBIN 31.6 pg (28.0-32.0); MEAN CORPUSCULAR VOLUME 93.1 fL (83.0-99.0); MEAN PLATELET VOLUME 10.7 fL (9.4-12.3); MONOCYTES ABSOLUTE AUTO 0.38 K/uL (0.00-0.80); MONOCYTES PERCENT AUTO 5.7 % (0.0-8.0); NEUTROPHILS ABSOLUTE AUTO 4.09 K/uL (1.80-7.70); NEUTROPHILS PERCENT AUTO 61.8 % (41.0-71.0); PLATELET COUNT,PLT 238 K/uL (150-400); RED BLOOD CELL COUNT 4.05 M/uL (4.10-5.30); WHITE BLOOD CELL COUNT,WBC 6.62 K/uL (3.9-11.3)
[2023-12-06] MEDS: Sodium Chloride 0.9% 2.5 ML Syringe FLUSH PRN (12:17)
[2023-12-06] MEDS: Sodium Chloride 0.9% 10 ML Syringe FLUSH PRN (12:17)
[2023-12-06 12:23] LABS: A/G RATIO 1.1 (0.9-1.6); ALBUMIN 3.5 g/dL (3.4-5.0); BILIRUBIN TOTAL 0.5 mg/dL (0.2-1.0); CALCIUM 8.4 mg/dL (8.5-10.1); CARBON DIOXIDE,CO2 26.4 mmol/L (21.0-32.0); CREATININE 0.8 mg/dL (0.6-1.0); EST CRCL DRUG DOSING (CG) 88.93 mL/min; POTASSIUM,K 3.6 mmol/L (3.5-5.1); PROTEIN TOTAL,TP 6.8 g/dL (6.4-8.2)
[2023-12-06] MEDS: Iopamidol 755 MG/ML 500 ML Multipack Bottle IVPUSH ONE (13:45)
== END 2023-12-06 16:43 | disposition home or self-care (01) ==
LOC: MW.ED 11:17
DX: R07.9 Chest pain, unspecified (principal); R06.02 Shortness of breath; F17.210 Nicotine dependence, cigarettes, uncomplicated; Z86.16 Personal history of COVID-19
CPT/HCPCS: 36415; 71045; 71275; 80053; 84484; 84703; 85025; 85610; 93005; 99285; J3490; Q9967; 93010; 99284

== ENCOUNTER 2023-12-21 04:01 | Emergency (ER) | payer BC ==
[2023-12-21] MEDS: Ibuprofen 600 MG Tab PO ONE (04:25)
== END 2023-12-21 05:20 | disposition home or self-care (01) ==
LOC: MW.ED 04:01
DX: S43.402A Unspecified sprain of left shoulder joint, initial encounter (principal); Z75.8 Other problems related to medical facilities and other health care; X50.1XXA Overexertion from prolonged static or awkward postures, initial encounter
CPT/HCPCS: 73030; 99283; A9270

== ENCOUNTER 2024-05-25 20:39 | Emergency (ER) | payer SELFPAY ==
[2024-05-25 21:17] LABS: BASOPHILS ABSOLUTE AUTO 0.04 K/uL (0.00-0.20); BASOPHILS PERCENT AUTO 0.6 % (0.0-1.0); EOSINOPHILS PERCENT AUTO 1.5 % (0.0-6.0); HEMATOCRIT 37.5 % (37.0-47.0); HEMOGLOBIN 12.9 g/dL (12.0-16.0); IMMATURE GRAN ABSOLUTE AUTO 0.01 K/uL (0.00-0.05); IMMATURE GRAN PERCENT AUTO 0.2 % (0.0-0.4); LYMPHOCYTES ABSOLUTE AUTO 2.92 K/uL (1.00-4.80); LYMPHOCYTES PERCENT AUTO 44.9 % (24.0-44.0); MEAN CORPUSCULAR HEMOGLOBIN 31.9 pg (28.0-32.0); MEAN CORPUSCULAR HGB CONC 34.4 g/dL (32.0-36.0); MEAN CORPUSCULAR VOLUME 92.6 fL (83.0-99.0); MONOCYTES ABSOLUTE AUTO 0.47 K/uL (0.00-0.80); MONOCYTES PERCENT AUTO 7.2 % (0.0-8.0); NEUTROPHILS ABSOLUTE AUTO 2.97 K/uL (1.80-7.70); NEUTROPHILS PERCENT AUTO 45.6 % (41.0-71.0); PLATELET COUNT,PLT 242 K/uL (150-400); RED BLOOD CELL COUNT 4.05 M/uL (4.10-5.30); WHITE BLOOD CELL COUNT,WBC 6.51 K/uL (3.9-11.3)
[2024-05-25 21:52] LABS: CALCIUM 9.4 mg/dL (8.5-10.1); CARBON DIOXIDE,CO2 26.2 mmol/L (21.0-32.0); EST CRCL DRUG DOSING (CG) 70.52 mL/min; POTASSIUM,K 3.9 mmol/L (3.5-5.1)
== END 2024-05-25 22:18 | disposition home or self-care (01) ==
LOC: MW.ED 20:39
DX: O99.891 Other specified diseases and conditions complicating pregnancy (principal); R10.30 Lower abdominal pain, unspecified; Z3A.01 Less than 8 weeks gestation of pregnancy
CPT/HCPCS: 36415; 76801; 76801-26; 80048; 81025; 84702; 85025; 86900; 86901; 99284

== ENCOUNTER 2024-08-10 14:58 | Emergency (ER) | payer MEDICAID ==
[2024-08-10] MEDS: Sodium Chloride 0.9% 1,000 ML IV STA (15:44)
[2024-08-10 15:56] LABS: BASOPHILS ABSOLUTE AUTO 0.04 K/uL (0.00-0.20); BASOPHILS PERCENT AUTO 0.5 % (0.0-1.0); EOSINOPHILS ABSOLUTE AUTO 0.04 K/uL (0.00-0.45); EOSINOPHILS PERCENT AUTO 0.5 % (0.0-6.0); HEMATOCRIT 37.3 % (37.0-47.0); HEMOGLOBIN 13.1 g/dL (12.0-16.0); IMMATURE GRAN ABSOLUTE AUTO 0.05 K/uL (0.00-0.05); IMMATURE GRAN PERCENT AUTO 0.6 % (0.0-0.4); LYMPHOCYTES ABSOLUTE AUTO 1.96 K/uL (1.00-4.80); LYMPHOCYTES PERCENT AUTO 22.7 % (24.0-44.0); MEAN CORPUSCULAR HEMOGLOBIN 31.7 pg (28.0-32.0); MEAN CORPUSCULAR HGB CONC 35.1 g/dL (32.0-36.0); MEAN CORPUSCULAR VOLUME 90.3 fL (83.0-99.0); MONOCYTES ABSOLUTE AUTO 0.35 K/uL (0.00-0.80); MONOCYTES PERCENT AUTO 4.1 % (0.0-8.0); NEUTROPHILS PERCENT AUTO 71.6 % (41.0-71.0); PLATELET COUNT,PLT 249 K/uL (150-400); RED BLOOD CELL COUNT 4.13 M/uL (4.10-5.30); WHITE BLOOD CELL COUNT,WBC 8.64 K/uL (3.9-11.3)
[2024-08-10 15:58] LABS: BILIRUBIN,URINE NEGATIVE (NEGATIVE); COLOR,URINE YELLOW; GLUCOSE,URINE NEGATIVE (NEGATIVE); KETONES,URINE NEGATIVE (NEGATIVE); LEUKOCYTE ESTERASE,URINE NEGATIVE (NEGATIVE); NITRITE,URINE NEGATIVE (NEGATIVE); OCCULT BLOOD,URINE NEGATIVE (NEGATIVE); PROTEIN,URINE NEGATIVE (NEGATIVE)
[2024-08-10 16:28] LABS: APPEARANCE,URINE HAZY; BACTERIA,URINE 1+ (NEGATIVE); EPITHELIAL CELLS,URINE MODERATE (NONE-FEW); RBC,URINE 0-1 (0-2/HPF); WBC,URINE 0-2 (0-5/HPF)
[2024-08-10 16:29] LABS: A/G RATIO 0.9 (0.9-1.6); ALBUMIN 3.4 g/dL (3.4-5.0); BILIRUBIN TOTAL 0.5 mg/dL (0.2-1.0); CALCIUM 9.3 mg/dL (8.5-10.1); CARBON DIOXIDE,CO2 23.1 mmol/L (21.0-32.0); CREATININE 0.5 mg/dL (0.6-1.0); EST CRCL DRUG DOSING (CG) 141.04 mL/min; MAGNESIUM 1.9 mg/dL (1.8-2.4); POTASSIUM,K 4.1 mmol/L (3.5-5.1); PROTEIN TOTAL,TP 7.2 g/dL (6.4-8.2)
== END 2024-08-10 17:13 | disposition home or self-care (01) ==
LOC: MW.ED 14:58
DX: O23.42 Unspecified infection of urinary tract in pregnancy, second trimester (principal); Z75.8 Other problems related to medical facilities and other health care; Z3A.15 15 weeks gestation of pregnancy
CPT/HCPCS: 36415; 80053; 81001; 83690; 83735; 85025; 87086; 93005; 99284

== ENCOUNTER 2024-09-07 21:26 | Emergency (ER) | payer MEDICAID ==
[2024-09-07 22:18] LABS: BASOPHILS ABSOLUTE AUTO 0.03 K/uL (0.00-0.20); BASOPHILS PERCENT AUTO 0.3 % (0.0-1.0); EOSINOPHILS ABSOLUTE AUTO 0.07 K/uL (0.00-0.45); EOSINOPHILS PERCENT AUTO 0.7 % (0.0-6.0); HEMATOCRIT 31.9 % (37.0-47.0); HEMOGLOBIN 11.1 g/dL (12.0-16.0); IMMATURE GRAN ABSOLUTE AUTO 0.03 K/uL (0.00-0.05); IMMATURE GRAN PERCENT AUTO 0.3 % (0.0-0.4); LYMPHOCYTES ABSOLUTE AUTO 2.33 K/uL (1.00-4.80); LYMPHOCYTES PERCENT AUTO 24.7 % (24.0-44.0); MEAN CORPUSCULAR HEMOGLOBIN 31.8 pg (28.0-32.0); MEAN CORPUSCULAR HGB CONC 34.8 g/dL (32.0-36.0); MEAN CORPUSCULAR VOLUME 91.4 fL (83.0-99.0); MEAN PLATELET VOLUME 10.3 fL (9.4-12.3); MONOCYTES ABSOLUTE AUTO 0.52 K/uL (0.00-0.80); MONOCYTES PERCENT AUTO 5.5 % (0.0-8.0); NEUTROPHILS ABSOLUTE AUTO 6.45 K/uL (1.80-7.70); NEUTROPHILS PERCENT AUTO 68.5 % (41.0-71.0); PLATELET COUNT,PLT 274 K/uL (150-400); RED BLOOD CELL COUNT 3.49 M/uL (4.10-5.30); WHITE BLOOD CELL COUNT,WBC 9.43 K/uL (3.9-11.3)
[2024-09-07 22:41] LABS: CALCIUM 8.8 mg/dL (8.5-10.1); CARBON DIOXIDE,CO2 23.8 mmol/L (21.0-32.0); CREATININE 0.5 mg/dL (0.6-1.0); EST CRCL DRUG DOSING (CG) 141.04 mL/min; POTASSIUM,K 3.6 mmol/L (3.5-5.1)
[2024-09-07 22:43] LABS: BILIRUBIN,URINE NEGATIVE (NEGATIVE); COLOR,URINE YELLOW; GLUCOSE,URINE NEGATIVE (NEGATIVE); KETONES,URINE TRACE mg/dL (NEGATIVE); LEUKOCYTE ESTERASE,URINE NEGATIVE (NEGATIVE); NITRITE,URINE NEGATIVE (NEGATIVE); OCCULT BLOOD,URINE NEGATIVE (NEGATIVE); PROTEIN,URINE NEGATIVE (NEGATIVE)
[2024-09-07 22:46] LABS: APPEARANCE,URINE HAZY
== END 2024-09-07 23:09 | disposition home or self-care (01) ==
LOC: MW.ED 21:26
DX: O99.891 Other specified diseases and conditions complicating pregnancy (principal); R55 Syncope and collapse; Z3A.19 19 weeks gestation of pregnancy
CPT/HCPCS: 36415; 80048; 81003; 85025; 99284

== ENCOUNTER 2024-09-18 20:12 | Emergency (ER) | payer MEDICAID ==
[2024-09-18 20:49] LABS: BILIRUBIN,URINE NEGATIVE (NEGATIVE); COLOR,URINE YELLOW; GLUCOSE,URINE NEGATIVE (NEGATIVE); KETONES,URINE NEGATIVE (NEGATIVE); LEUKOCYTE ESTERASE,URINE NEGATIVE (NEGATIVE); NITRITE,URINE NEGATIVE (NEGATIVE); OCCULT BLOOD,URINE NEGATIVE (NEGATIVE); PROTEIN,URINE NEGATIVE (NEGATIVE)
[2024-09-18 20:59] LABS: APPEARANCE,URINE HAZY
== END 2024-09-18 20:50 | disposition still patient (30) ==
LOC: MW.ED 20:12
DX: Z53.21 Procedure and treatment not carried out due to patient leaving prior to being seen by health care provider (principal)
CPT/HCPCS: 81003

== ENCOUNTER 2024-10-10 11:49 | Observation (INO) | payer MEDICAID ==
[2024-10-10 12:19] LABS: APPEARANCE,URINE CLEAR; BILIRUBIN,URINE NEGATIVE (NEGATIVE); COLOR,URINE YELLOW; GLUCOSE,URINE NEGATIVE (NEGATIVE); KETONES,URINE NEGATIVE (NEGATIVE); LEUKOCYTE ESTERASE,URINE NEGATIVE (NEGATIVE); NITRITE,URINE NEGATIVE (NEGATIVE); OCCULT BLOOD,URINE NEGATIVE (NEGATIVE); PH,URINE 6.5 (5.0-8.0); PROTEIN,URINE NEGATIVE (NEGATIVE); UROBILINOGEN,URINE 0.2 EU/dL (<2.0)
[2024-10-10] MEDS ORDERED: Sodium Chloride 0.9% 10 ML Syringe FLUSH PRN ×2 (12:52→20:41)
[2024-10-10] MEDS ORDERED: Sodium Chloride 0.9% 2.5 ML Syringe FLUSH PRN ×2 (12:52→20:41)
[2024-10-10] MEDS ORDERED: Sodium Chloride 0.9% 20 ML SDV IV PRN ×2 (12:52→20:41)
[2024-10-10] MEDS: Lactated Ringers 1,000 ML IV ONE (13:15)
[2024-10-10] MEDS: Acetaminophen 1,000 MG in Premix Bag 1 BAG IV ONE (13:17)
[2024-10-10 15:47] LABS: CANDIDA DNA PROBE NEGATIVE (NEGATIVE); GARDNERELLA DNA PROBE POSITIVE (NEGATIVE); TRICHOMONAS DNA PROBE NEGATIVE (NEGATIVE)
[2024-10-10] MEDS: metroNIDAZOLE 250 MG Tab PO SCH (17:17)
[2024-10-10] MEDS ORDERED: Acetaminophen 325 MG Tab PO PRN (20:41)
[2024-10-10] MEDS ORDERED: Butorphanol 2 MG/ML SDV IVPUSH PRN (20:41)
[2024-10-10] MEDS ORDERED: Water For Irrigation,Sterile 1,000 ML Container IRR PRN (20:41)
[2024-10-10] MEDS: Lactated Ringers 1,000 ML IV SCH (21:58)
[2024-10-11] MEDS ORDERED: Prenatal Multivitamin with Calcium/Folic Acid/Iron Tab PO SCH (09:00)
== END 2024-10-11 12:15 | disposition home or self-care (01) ==
LOC: MW.OBCHECK 11:49 → MW.OB 11:50 → MW.OBCHECK 20:41 → MW.OB 20:41
PROVIDERS: ADMIT Obstetrics & Gynecology; ATTEND Obstetrics & Gynecology
DX: O99.282 Endocrine, nutritional and metabolic diseases complicating pregnancy, second trimester (principal); E86.0 Dehydration; O99.891 Other specified diseases and conditions complicating pregnancy; R51.9 Headache, unspecified; Z3A.23 23 weeks gestation of pregnancy
CPT/HCPCS: 76815; 76817; 81003; 82731; 87480; 87510; 87660; 96360; 96361; A9270; G0378; J0131; J7120; 99222; 99238

== ENCOUNTER 2025-02-02 20:49 | Emergency (ER) | payer MEDICAID | END 2025-02-02 21:20 | disposition home or self-care (01) | LOC: MW.ED 20:49 | DX: O90.89 Other complications of the puerperium, not elsewhere classified (principal); R51.9 Headache, unspecified; R03.0 Elevated blood-pressure reading, without diagnosis of hypertension; Z79.899 Other long term (current) drug therapy | CPT/HCPCS: 99283; A9270; 99282 ==

== ENCOUNTER 2025-04-23 00:50 | Emergency (ER) | payer MEDICAID ==
[2025-04-23 01:07] LABS: GLUCOSE,URINE NEGATIVE (NEGATIVE); OCCULT BLOOD,URINE LARGE (NEGATIVE)
[2025-04-23 01:21] LABS: APPEARANCE,URINE CLOUDY; EPITHELIAL CELLS,URINE OCCASIONAL (NONE-FEW)
[2025-04-23] MEDS: Nitrofurantoin Monohydrate/Macrocrystalline 100 MG Cap PO ONE (01:35)
== END 2025-04-23 01:38 | disposition home or self-care (01) ==
LOC: MW.ED 00:50
DX: N39.0 Urinary tract infection, site not specified (principal); R31.0 Gross hematuria; M54.50 Low back pain, unspecified; G89.29 Other chronic pain; Z79.899 Other long term (current) drug therapy
CPT/HCPCS: 81001; 81025; 87086; 99283; A9270; 87088; 87186